=== PATIENT | male | born 1990 | race Caucasian/White ===

== ENCOUNTER 2023-02-12 15:33 | Emergency (ER) | payer OTHER ==
[~2023-02-12] VITALS: Ht 177.8 cm; Wt 83.9 kg
[2023-02-12] MEDS ORDERED: PREDNISONE50 MG PO (17:49)
== END 2023-02-12 18:02 | disposition home or self-care (01) ==
LOC: ED 15:33
DX: T78.1XXA Other adverse food reactions, not elsewhere classified, initial encounter (principal); Z91.018 Allergy to other foods; X58.XXXA Exposure to other specified factors, initial encounter

== ENCOUNTER → 2023-05-18 | Outpatient (CLI) | payer OTHER ==
[~2023-05-18] MED LIST: PREDNISONE50 MG PO
== END | disposition home or self-care (01) ==
LOC: RAD 16:47
PROVIDERS: ATTEND Nurse Practitioner Family
DX: M54.50 Low back pain, unspecified (principal); M25.561 Pain in right knee

== ENCOUNTER 2023-12-03 12:39 | Emergency (ER) | payer OTHER ==
[~2023-12-03] VITALS: Ht 175.2 cm; Wt 78.0 kg
[2023-12-03] MEDS ORDERED: FAMOTIDINE 50 ML IV ONE ×2 (12:50)
[2023-12-03] MEDS ORDERED: EPINEPHrine Hydrochloride 1 MG/ML AMP IM ONE (12:50)
[2023-12-03] MEDS ORDERED: methylPREDNISolone sod succ 125 MG VIAL IV ONE (12:50)
[2023-12-03] MEDS ORDERED: SODIUM CHLORIDE 0.9% 1,000 ML IV ONE (13:00)
[2023-12-03] MEDS ORDERED: PREDNISONE20 M1 PO ×2 (14:22→15:11)
== END 2023-12-03 14:39 | disposition home or self-care (01) ==
LOC: ED 12:39
DX: T78.1XXA Other adverse food reactions, not elsewhere classified, initial encounter (principal); Z91.018 Allergy to other foods; X58.XXXA Exposure to other specified factors, initial encounter